=== PATIENT | male | born 1960 | race Asian ===

== ENCOUNTER 2022-02-14 05:12 | Emergency (ER) | payer MEDICARE, SELFPAY ==
[2022-02-14] VITALS (17 sets, daily range): BP systolic 104–133; BP diastolic 69–89; PULSE 82–107; RESP 17–22; TEMP 36.1–36.6; O2SAT 90–100; BMI 25.9
--- NOTE | 2022-02-14 05:36 | CRLHL7_ITS ---
For Patients: As a result of the Century Cures Act, medical imaging exams and procedure reports are released immediately into your electronic medical record. You may view this report before your referring provider. If you have questions, please contact your health care provider. INDICATION: Chest pain. TECHNIQUE: Chest 1 views. COMPARISON: 01/10/2020. FINDINGS: Cardiovascular and mediastinum: Heart size and vasculature are normal in caliber and appearance. Lungs and pleural spaces: Lungs are clear. No sign of infiltrate or mass. No sign of pleural effusion. No pneumothorax. Bones and soft tissues: No significant findings. IMPRESSION: No acute findings and no significant changes from the prior exam. Dictated by Douglas Gamino MD @ 02/14/2022 6:41:05 AM (Electronically Signed)
[2022-02-14 05:44] LABS: Basophils Absolute Auto 0.01 K/uL (0.00-0.30); Basophils Percent Auto 0.2 % (0.0-3.0); Eosinophils Absolute Auto 0.04 K/uL (0.00-0.50); Eosinophils Percent Auto 0.8 % (0.0-7.0); Hematocrit 25.6 % (37.0-53.0); Immature Granulocytes Abs Auto 0.09 K/uL (0.00-0.30); Lymphocytes Percent Auto 65.9 % (20-44); Mean Corpuscular HGB Conc 35 gm/dL (32-36); Mean Corpuscular Hemoglobin 32 pg (26-34); Mean Corpuscular Volume 90 fL (80-100); Monocytes Percent Auto 8.8 % (0.0-11.0); Neutrophils Percent Auto 22.5 % (42.0-72.0); RDW Coefficient of Variation % 12.4 % (11.5-15.5); Red Blood Count 2.85 m/uL (4.30-5.90); White Blood Count* 5.02 K/uL (4.50-11.00)
[2022-02-14] MEDS: MORPHINE 2 MG/ML inj IVP ×3 (05:47→08:02)
[2022-02-14 05:49] LABS: Platelet Count* 16 K/uL (140-440)
[2022-02-14 05:50] LABS: Slide Review Reflex No
--- NOTE | 2022-02-14 05:50 | ED.NURSE ---
Critical lab value of platelets [address] Chou of this result
[2022-02-14] MEDS: ONDANSETRON 2 MG/ML inj 4 MG IVP (05:51)
--- NOTE | 2022-02-14 05:53 | ED_ITS ---
HPI - General Adult General Date Seen: 02/14/22 <Omid Chou MD - Last Filed: 02/14/22 10:18> Chief complaint: Chest Pain <Omid Chou MD - Last Filed: 02/14/22 10:18> Stated complaint: pain on chest and shoulders <Omid Chou MD - Last Filed: 02/14/22 10:18> Time Seen by Provider: 02/14/22 05:19 <Omdi Chou MD - Last Filed: 02/14/22 10:18> Source: patient <Omid Chou MD - Last Filed: 02/14/22 10:18> Mode of arrival: ambulatory <Omid Chou MD - Last Filed: 02/14/22 10:18> Limitations: language barrier <Omid Chou MD - Last Filed: 02/14/22 10:18> History of Present Illness HPI narrative: Patient is a 61-year-old male with a long history of mantle cell lymphoma. 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 He has now relapsed and recently had a bone marrow biopsy. He is supposed to meet with his oncologist later on today to determine the plan of action. Last evening he went to bed feeling well and woke up with an occipital headache at 10:00 p.m.. He was able to get back to sleep but awoke again at midnight with pain in both shoulders. He awoke a 3rd time at 2:00 a.m. with pain in his chest and epigastric area. He has not taken anything to help with the pain. He denies GI upset or acid reflux. He has no fevers or chills. He denies shortness of breath or cough but does have some pain with deep inspiration. No nausea or vomiting. He states that he has been eating and drinking well. He has no cardiac history. Recent PET scan showed diffusely increased uptake throughout his skull base, spine, ribs, pelvis, extremities consistent with bone marrow infiltration recurrent lymphoma. He has a meeting with Dr. Olson from [facility] at 11:00 a.m. today in the [facility]. He does not have anyone to drive him to that appointment. <Omid Chou MD - Last Filed: 02/14/22 10:18> Related Data Home medications: Home Medications Medication Instructions Recorded Confirmed No Known Home Medications 02/14/22 02/14/22 <Omid Chou MD - Last Filed: 02/14/22 10:18> Allergies/adverse reactions: Allergies Allergy/AdvReac Type Severity Reaction Status Date / Time No Known Drug Allergies Allergy Verified 02/14/22 05:23 <Omid Chou MD - Last Filed: 02/14/22 10:18> [facility] Medical History: Medical History (Updated 02/14/22 @ 15:07 by Tomeka Reyes MD) B12 deficiency COVID-19 virus infection History of Helicobacter pylori infection Mantle cell lymphoma Thrombocytopenia Vertigo <Omid Chou MD - Last Filed: 02/14/22 10:18> Surgical History: Surgical History (Updated 02/14/22 @ 05:35 by Christiana Leary RN) Bone marrow transplant status <Omid Chou MD - Last Filed: 02/14/22 10:18> Social History: Social History (Updated 02/14/22 @ 05:52 by Omid Chou MD) Narrative: , PCP is Nataliya, former smoker Smoking Status: Former smoker How often do you have a drink containing alcohol: never AUDIT-C Alcohol total score: 0 Non-prescribed substance use: denies use <Omid Chou MD - Last Filed: 02/14/22 10:18> Exam Narrative: Exam Narrative: Vitals noted. He is writhing in pain. HEENT: Conjunctiva clear. Scleral icterus. Tympanic membranes are pearly white bilaterally. Posterior pharynx is clear without erythema or exudate. Neck is supple without adenopathy, thyromegaly, carotid bruit. Lungs: Clear to auscultation in all jaramillo. No wheezes, rales, rhonchi. No chest wall tenderness. Heart: Tachycardic but Regular rate and rhythm without murmur. Abdomen: Soft and nontender. No guarding, rigidity, rebound. Bowel sounds are normal. No palpable masses. Extremities: No cyanosis or edema. Good distal pulses. Skin: No abnormalities noted of the exposed skin. He is pale. Neurologic: Awake, alert, fully oriented. Neurologic exam is nonfocal. <Dinh Chou MD - Last Filed: 02/14/22 10:18> Const: Vital Signs, click to edit/add: Vital Signs - 24 hr 02/14/22 05:20 02/14/22 05:50 02/14/22 06:20 Temperature 97.8 F Pulse Rate [Left P ulse Oximeter] 107 H 82 88 Respiratory Rate 22 20 22 Blood Pressure [Le ft Upper Arm] 133/89 110/71 115/81 Pulse Oximetry 100 96 92 Oxygen Delivery Me thod Room Air Room Air Room Air 02/14/22 07:00 02/14/22 07:30 02/14/22 08:00 Temperature Pulse Rate [Left P ulse Oximeter] 96 99 97 Respiratory Rate 22 18 Blood Pressure [Le ft Upper Arm] 121/83 115/77 120/81 Pulse Oximetry 98 94 99 Oxygen Delivery Me thod Room Air Room Air Room Air 02/14/22 08:30 02/14/22 09:00 02/14/22 09:08 Temperature Pulse Rate [Left P ulse Oximeter] 95 92 92 Respiratory Rate Blood Pressure [Le ft Upper Arm] 110/72 107/73 Pulse Oximetry 96 90 92 Oxygen Delivery Me thod Room Air Room Air Room Air 02/14/22 09:30 02/14/22 10:00 02/14/22 10:30 Temperature Pulse Rate [Left P ulse Oximeter] 96 99 83 Respiratory Rate 22 21 Blood Pressure [Le ft Upper Arm] 109/70 111/76 104/69 Pulse Oximetry 92 96 95 Oxygen Delivery Me thod Room Air Room Air Room Air 02/14/22 11:00 02/14/22 11:30 02/14/22 13:20 Temperature 97 F L Pulse Rate [Left P ulse Oximeter] 92 93 87 Respiratory Rate 20 17 18 Blood Pressure [Le ft Upper Arm] 115/78 110/75 115/80 Pulse Oximetry 96 95 95 Oxygen Delivery Me thod Room Air Room Air Room Air 02/14/22 15:00 02/14/22 14:00 02/14/22 13:20 Temperature Pulse Rate [Left P ulse Oximeter] 95 87 87 Respiratory Rate 21 20 18 Blood Pressure [Le ft Upper Arm] 107/79 114/75 115/80 Pulse Oximetry 97 94 95 Oxygen Delivery Me thod Room Air Room Air Room Air <Omid Chou MD - Last Filed: 02/14/22 10:18> Vital Signs, click to edit/add: Vital Signs - 24 hr 02/14/22 05:20 02/14/22 05:50 02/14/22 06:20 Temperature 97.8 F Pulse Rate [Left P ulse Oximeter] 107 H 82 88 Respiratory Rate 22 20 22 Blood Pressure [Le ft Upper Arm] 133/89 110/71 115/81 Pulse Oximetry 100 96 92 Oxygen Delivery Me thod Room Air Room Air Room Air 02/14/22 07:00 02/14/22 07:30 02/14/22 08:00 Temperature Pulse Rate [Left P ulse Oximeter] 96 99 97 Respiratory Rate 22 18 Blood Pressure [Le ft Upper Arm] 121/83 115/77 120/81 Pulse Oximetry 98 94 99 Oxygen Delivery Me thod Room Air Room Air Room Air 02/14/22 08:30 02/14/22 09:00 02/14/22 09:08 Temperature Pulse Rate [Left P ulse Oximeter] 95 92 92 Respiratory Rate Blood Pressure [Le ft Upper Arm] 110/72 107/73 Pulse Oximetry 96 90 92 Oxygen Delivery Me thod Room Air Room Air Room Air 02/14/22 09:30 02/14/22 10:00 02/14/22 10:30 Temperature Pulse Rate [Left P ulse Oximeter] 96 99 83 Respiratory Rate 22 21 Blood Pressure [Le ft Upper Arm] 109/70 111/76 104/69 Pulse Oximetry 92 96 95 Oxygen Delivery Me thod Room Air Room Air Room Air 02/14/22 11:00 02/14/22 11:30 02/14/22 13:20 Temperature 97 F L Pulse Rate [Left P ulse Oximeter] 92 93 87 Respiratory Rate 20 17 18 Blood Pressure [Le ft Upper Arm] 115/78 110/75 115/80 Pulse Oximetry 96 95 95 Oxygen Delivery Me thod Room Air Room Air Room Air 02/14/22 15:00 02/14/22 14:00 02/14/22 13:20 Temperature Pulse Rate [Left P ulse Oximeter] 95 87 87 Respiratory Rate 21 20 18 Blood Pressure [Le ft Upper Arm] 107/79 114/75 115/80 Pulse Oximetry 97 94 95 Oxygen Delivery Ca thod Room Air Room Air Room Air <Tomeka Reyes MD - Last Filed: 02/14/22 16:02> Course Course Hospital Course: Patient is seen and examined. Initial EKG shows sinus tachycardia with a rate of 105. No acute ST or T-wave changes noted. Portable chest x-ray by my read is unremarkable. Point of care troponin is 0. Other labs are ordered. He is given morphine 2 mg IV. <Omid Chou MD - Last Filed: 02/14/22 10:18> Reevaluation(s) Reevaluation #1: His chest pain and abdominal pain are much improved. He is still com plaining of an occipital headache and some shoulder pain. His labs are all [place] [address] and hemoglobin of 9.0. These are not significantly different from when last checked a week ago. D-dimer is still pending. He is given another 2 mg of morphine. <Omid Chou MD - Last Filed: 02/14/22 10:18> Reevaluation #2: The 2nd dose of morphine has helped his pain quite a lot. His D-dimer has come back at 4.[address] of his chest has been ordered to rule out pulmonary embolism. His chest x-ray by my read is negative and the radiologist concurs. His appointment with [facility] is at 11:00 a.m. this morning. He drives himself to these appointments. <Omid Chou MD - Last Filed: 02/14/22 10:18> Reevaluation #3: Patient is resting comfortably. Still waiting for Radiology to read the CT of his chest. Decision will have to be made as to whether he can drive to his oncology appointment at 11:00 a.m. this morning or whether that needs to be rescheduled. If he has a PE a transfer to [place] would make sense so the oncologist can see him there. <Omid Chou MD - Last Filed: 02/14/22 10:18> Time: 08:55 <Tomeka Reyes MD - Last Filed: 02/14/22 16:02> Additional Reevaluation(s): Was reviewed with patient that his chest CT PE protocol is not showing any pulmonary embolus or other acute pathology. He is feeling his head pain and neck pain again, the epigastric abdominal pain is worse. It is overall better than it was last night. It sounds as if this is been a constellation of pain symptoms including his head neck both shoulders, chest and epigastric abdomen radiating out. I have ordered 0.5 mg IV Dilaudid in will see if that helps. Patient has a history of lymphoma and after 2 years found that he is no longer in remission last week. He was supposed to see his oncologist today but the appointment has been canceled due to his symptoms. It is unclear at this time exactly what the pain is coming from, will need to look into his records further review his labs further tried to make a course of treatment and see if there is anything diagnosable here. We are going to do COVID screening. <Tomeka Reyes MD - Last Filed: 02/14/22 16:02> Consultations Consultation #1: Spoke with the radiologist regarding this patient. The preliminary CT re port did not show pulmonary emboli but our radiologist has done the formal over- read. He does see lesion in C7 and believes we need an MRI. This would potentially explain the patient's head and neck pain. I will be ordering an MRI of his cervical thoracic spine as recommended by our radiologist. <Tomeka Reyes MD - Last Filed: 02/14/22 16:02> Time: 09:20 <Tomeka Reyes MD - Last Filed: 02/14/22 16:02> Consultation #2: Have spoke with patient's oncologist Dr. Solo from [facility]. Reviewed the MRI report and he stated that it is not unusual for this patient who is having a recurrent mantle cell lymphoma. 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 He had talked to the [facility] transplant team and they had recommended starting acalabrutinib which Dr. Solo does have now. He understands that he will not be able to get up there today but they want to see him on Saturday to initiate this. In the meantime we will manage his pain. <Tomeka Reyes MD - Last Filed: 02/14/22 16:02> Time: 14:44 <Tomeka Reyes MD - Last Filed: 02/14/22 16:02> Vital Signs Vital signs: Initial Vital Signs Temperature 97.8 F 02/14/22 05:20 Temperature Source Temporal Artery Scan 02/14/22 05:20 Pulse Rate 107 H 02/14/22 05:20 Pulse Rhythm 02/14/22 05:20 Respiratory Rate 22 02/14/22 05:20 Blood Pressure 133/89 02/14/22 05:20 Blood Pressure Mean 103 02/14/22 05:20 Blood Pressure Position Supine 02/14/22 05:20 Pulse Oximetry 100 02/14/22 05:20 Oxygen Delivery Method 02/14/22 05:20 Vital Signs Temperature 97.8 F 02/14/22 05:20 Pulse Rate 107 H 02/14/22 05:20 Respiratory Rate 22 02/14/22 05:20 Blood Pressure 133/89 02/14/22 05:20 Pulse Oximetry 100 02/14/22 05:20 Oxygen Delivery Method 02/14/22 05:20 Temperature 97 F L 02/14/22 13:20 Pulse Rate 95 02/14/22 15:00 Respiratory Rate 21 02/14/22 15:00 Blood Pressure 107/79 02/14/22 15:00 Pulse Oximetry 97 02/14/22 15:00 Oxygen Delivery Method 02/14/22 15:00 <Omid Chou MD - Last Filed: 02/14/22 10:18> Initial Vital Signs Temperature 97.8 F 02/14/22 05:20 Temperature Source Temporal Artery Scan 02/14/22 05:20 Pulse Rate 107 H 02/14/22 05:20 Pulse Rhythm 02/14/22 05:20 Respiratory Rate 22 02/14/22 05:20 Blood Pressure 133/89 02/14/22 05:20 Blood Pressure Mean 103 02/14/22 05:20 Blood Pressure Position Supine 02/14/22 05:20 Pulse Oximetry 100 02/14/22 05:20 Oxygen Delivery Method 02/14/22 05:20 Vital Signs Temperature 97.8 F 02/14/22 05:20 Pulse Rate 107 H 02/14/22 05:20 Respiratory Rate 22 02/14/22 05:20 Blood Pressure 133/89 02/14/22 05:20 Pulse Oximetry 100 02/14/22 05:20 Oxygen Delivery Method 02/14/22 05:20 Temperature 97 F L 02/14/22 13:20 Pulse Rate 95 02/14/22 15:00 Respiratory Rate 21 02/14/22 15:00 Blood Pressure 107/79 02/14/22 15:00 Pulse Oximetry 97 02/14/22 15:00 Oxygen Delivery Method 02/14/22 15:00 <Tomeka Reyes MD - Last Filed: 02/14/22 16:02> Medical Decision Making Lab Data Labs: Lab Results 02/14/22 02/14/22 02/14/22 Range/Units 05:25 05:25 05:25 WBC 5.02 (4.50-11.00) K/uL RBC 2.85 L (4.30-5.90) m/uL Hgb 9.0 L (13.5-17.5) gm/dL Hct 25.6 L (37.0-53.0) % MCV 90 (80-100) fL MCH 32 (26-34) pg MCHC 35 (32-36) gm/dL RDW Coeff of Rebeca 12.4 (11.5-15.5) % Plt Count 16 L* (140-440) K/uL Neut % (Auto) 22.5 L (42.0-72.0) % Lymph % (Auto) 65.9 H (20-44) % [place] % (Auto) 8.8 (0.0-11.0) % Eos % (Auto) 0.8 (0.0-7.0) % Baso % (Auto) 0.2 (0.0-3.0) % Neut # (Auto) 1.10 L (1.7-7.0) K/uL Lymph # (Auto) 3.30 H (0.90-2.90) K/uL [place] # (Auto) 0.40 (0.00-0.90) K/UL Eos # (Auto) 0.04 (0.00-0.50) K/uL Baso # (Auto) 0.01 (0.00-0.30) K/uL Abs Immat Gran (auto) 0.09 (0.00-0.30) K/uL D-Dimer Quant (PE/DVT) 4.43 H (0.00-0.50) ug/ml Sodium 138 (135-149) mmol/L Potassium 4.2 (3.6-5.1) mmol/L Chloride 103 (96-114) mmol/L Carbon Dioxide 24 (20-32) mmol/L BUN 18 (7-30) mg/dL Creatinine 0.8 (0.5-1.5) mg/dL Estimated Creat Clear 102.66 Estimated GFR 102 ml/min Glucose 98 (60-115) mg/dL Uric Acid 7.0 (2.2-8.4) mg/dL Calcium 9.4 (8.4-10.6) mg/dL Total Bilirubin (0.1-1.5) mg/dL Direct Bilirubin (0.0-0.5) mg/dL AST (12-35) U/L ALT (4-50) U/L Alkaline Phosphatase (40-150) U/L Total Protein (6.0-8.3) g/dL Albumin (3.3-5.0) g/dL Lipase (23-300) U/L Procalcitonin (<0.50) ng/mL Urine Color (Yellow) Urine Appearance (Clear) Urine pH (5.0-8.5) Ur Specific [place] (1.000-1.030) Urine Protein (Negative) Urine Glucose (UA) (Negative) Urine Ketones (Negative) Urine Blood (Negative) Urine Nitrite (Negative) Urine Bilirubin (Negative) Urine Urobilinogen (0.2-1.0) Ur Leukocyte Esterase (Negative) Urine RBC (0-2) Urine WBC (0-5) Ur Squamous Epith Cells (None-Few) Urine Bacteria SARS-CoV-2 (PCR) (Negative) POC Troponin I (0.01-0.04) ng/ml 02/14/22 02/14/22 02/14/22 Range/Units 05:25 05:25 08:57 WBC (4.50-11.00) K/uL RBC (4.30-5.90) m/uL Hgb (13.5-17.5) gm/dL Hct (37.0-53.0) % MCV (80-100) fL MCH (26-34) pg MCHC (32-36) gm/dL RDW Coeff of Rebeca (11.5-15.5) % Plt Count (140-440) K/uL Neut % (Auto) (42.0-72.0) % Lymph % (Auto) (20-44) % [place] % (Auto) (0.0-11.0) % Eos % (Auto) (0.0-7.0) % Baso % (Auto) (0.0-3.0) % Neut # (Auto) (1.7-7.0) K/uL Lymph # (Auto) (0.90-2.90) K/uL [place] # (Auto) (0.00-0.90) K/UL Eos # (Auto) (0.00-0.50) K/uL Baso # (Auto) (0.00-0.30) K/uL Abs Immat Gran (auto) (0.00-0.30) K/uL D-Dimer Quant (PE/DVT) (0.00-0.50) ug/ml Sodium (135-149) mmol/L Potassium (3.6-5.1) mmol/L Chloride (96-114) mmol/L Carbon Dioxide (20-32) mmol/L BUN (7-30) mg/dL Creatinine (0.5-1.5) mg/dL Estimated Creat Clear Estimated GFR ml/min Glucose (60-115) mg/dL Uric Acid (2.2-8.4) mg/dL Calcium (8.4-10.6) mg/dL Total Bilirubin 1.4 (0.1-1.5) mg/dL Direct Bilirubin 0.4 (0.0-0.5) mg/dL AST 53 H (12-35) U/L ALT 26 (4-50) U/L Alkaline Phosphatase 129 (40-150) U/L Total Protein 8.6 H (6.0-8.3) g/dL Albumin 4.9 (3.3-5.0) g/dL Lipase 98 (23-300) U/L Procalcitonin 0.12 (<0.50) ng/mL Urine Color (Yellow) Urine Appearance (Clear) Urine pH (5.0-8.5) Ur Specific [place] (1.000-1.030) Urine Protein (Negative) Urine Glucose (UA) (Negative) Urine Ketones (Negative) Urine Blood (Negative) Urine Nitrite (Negative) Urine Bilirubin (Negative) Urine Urobilinogen (0.2-1.0) Ur Leukocyte Esterase (Negative) Urine RBC (0-2) Urine WBC (0-5) Ur Squamous Epith Cells (None-Few) Urine Bacteria SARS-CoV-2 (PCR) Negative SARS-CoV-2 (Negative) POC Troponin I 0.00 L (0.01-0.04) ng/ml 02/14/22 Range/Units 10:00 WBC (4.50-11.00) K/uL RBC (4.30-5.90) m/uL Hgb (13.5-17.5) gm/dL Hct (37.0-53.0) % MCV (80-100) fL MCH (26-34) pg MCHC (32-36) gm/dL RDW Coeff of Rebeca (11.5-15.5) % Plt Count (140-440) K/uL Neut % (Auto) (42.0-72.0) % Lymph % (Auto) (20-44) % [place] % (Auto) (0.0-11.0) % Eos % (Auto) (0.0-7.0) % Baso % (Auto) (0.0-3.0) % Neut # (Auto) (1.7-7.0) K/uL Lymph # (Auto) (0.90-2.90) K/uL [place] # (Auto) (0.00-0.90) K/UL Eos # (Auto) (0.00-0.50) K/uL Baso # (Auto) (0.00-0.30) K/uL Abs Immat Gran (auto) (0.00-0.30) K/uL D-Dimer Quant (PE/DVT) (0.00-0.50) ug/ml Sodium (135-149) mmol/L Potassium (3.6-5.1) mmol/L Chloride (96-114) mmol/L Carbon Dioxide (20-32) mmol/L BUN (7-30) mg/dL Creatinine (0.5-1.5) mg/dL Estimated Creat Clear Estimated GFR ml/min Glucose (60-115) mg/dL Uric Acid (2.2-8.4) mg/dL Calcium (8.4-10.6) mg/dL Total Bilirubin (0.1-1.5) mg/dL Direct Bilirubin (0.0-0.5) mg/dL AST (12-35) U/L ALT (4-50) U/L Alkaline Phosphatase (40-150) U/L Total Protein (6.0-8.3) g/dL Albumin (3.3-5.0) g/dL Lipase (23-300) U/L Procalcitonin (<0.50) ng/mL Urine Color Yellow (Yellow) Urine Appearance Clear (Clear) Urine pH 5.5 (5.0-8.5) Ur Specific [place] 1.015 (1.000-1.030) Urine Protein Negative (Negative) Urine Glucose (UA) Negative (Negative) Urine Ketones Negative (Negative) Urine Blood Trace-lysed A (Negative) Urine Nitrite Negative (Negative) Urine Bilirubin Negative (Negative) Urine Urobilinogen 0.2 (0.2-1.0) Ur Leukocyte Esterase Negative (Negative) Urine RBC 0-2 (0-2) Urine WBC 0-2 (0-5) Ur Squamous Epith Cells Few (None-Few) Urine Bacteria Not Reportable SARS-CoV-2 (PCR) (Negative) POC Troponin I (0.01-0.04) ng/ml <Omid Chou MD - Last Filed: 02/14/22 10:18> Lab Results 02/14/22 02/14/22 02/14/22 Range/Units 05:25 05:25 05:25 WBC 5.02 (4.50-11.00) K/uL RBC 2.85 L (4.30-5.90) m/uL Hgb 9.0 L (13.5-17.5) gm/dL Hct 25.6 L (37.0-53.0) % MCV 90 (80-100) fL MCH 32 (26-34) pg MCHC 35 (32-36) gm/dL RDW Coeff of Rebeca 12.4 (11.5-15.5) % Plt Count 16 L* (140-440) K/uL Neut % (Auto) 22.5 L (42.0-72.0) % Lymph % (Auto) 65.9 H (20-44) % [place] % (Auto) 8.8 (0.0-11.0) % Eos % (Auto) 0.8 (0.0-7.0) % Baso % (Auto) 0.2 (0.0-3.0) % Neut # (Auto) 1.10 L (1.7-7.0) K/uL Lymph # (Auto) 3.30 H (0.90-2.90) K/uL [place] # (Auto) 0.40 (0.00-0.90) K/UL Eos # (Auto) 0.04 (0.00-0.50) K/uL Baso # (Auto) 0.01 (0.00-0.30) K/uL Abs Immat Gran (auto) 0.09 (0.00-0.30) K/uL D-Dimer Quant (PE/DVT) 4.43 H (0.00-0.50) ug/ml Sodium 138 (135-149) mmol/L Potassium 4.2 (3.6-5.1) mmol/L Chloride 103 (96-114) mmol/L Carbon Dioxide 24 (20-32) mmol/L BUN 18 (7-30) mg/dL Creatinine 0.8 (0.5-1.5) mg/dL Estimated Creat Clear 102.66 Estimated GFR 102 ml/min Glucose 98 (60-115) mg/dL Uric Acid 7.0 (2.2-8.4) mg/dL Calcium 9.4 (8.4-10.6) mg/dL Total Bilirubin (0.1-1.5) mg/dL Direct Bilirubin (0.0-0.5) mg/dL AST (12-35) U/L ALT (4-50) U/L Alkaline Phosphatase (40-150) U/L Total Protein (6.0-8.3) g/dL Albumin (3.3-5.0) g/dL Lipase (23-300) U/L Procalcitonin (<0.50) ng/mL Urine Color (Yellow) Urine Appearance (Clear) Urine pH (5.0-8.5) Ur Specific [place] (1.000-1.030) Urine Protein (Negative) Urine Glucose (UA) (Negative) Urine Ketones (Negative) Urine Blood (Negative) Urine Nitrite (Negative) Urine Bilirubin (Negative) Urine Urobilinogen (0.2-1.0) Ur Leukocyte Esterase (Negative) Urine RBC (0-2) Urine WBC (0-5) Ur Squamous Epith Cells (None-Few) Urine Bacteria SARS-CoV-2 (PCR) (Negative) POC Troponin I (0.01-0.04) ng/ml 02/14/22 02/14/22 02/14/22 Range/Units 05:25 05:25 08:57 WBC (4.50-11.00) K/uL RBC (4.30-5.90) m/uL Hgb (13.5-17.5) gm/dL Hct (37.0-53.0) % MCV (80-100) fL MCH (26-34) pg MCHC (32-36) gm/dL RDW Coeff of Rebeca (11.5-15.5) % Plt Count (140-440) K/uL Neut % (Auto) (42.0-72.0) % Lymph % (Auto) (20-44) % [place] % (Auto) (0.0-11.0) % Eos % (Auto) (0.0-7.0) % Baso % (Auto) (0.0-3.0) % Neut # (Auto) (1.7-7.0) K/uL Lymph # (Auto) (0.90-2.90) K/uL [place] # (Auto) (0.00-0.90) K/UL Eos # (Auto) (0.00-0.50) K/uL Baso # (Auto) (0.00-0.30) K/uL Abs Immat Gran (auto) (0.00-0.30) K/uL D-Dimer Quant (PE/DVT) (0.00-0.50) ug/ml Sodium (135-149) mmol/L Potassium (3.6-5.1) mmol/L Chloride (96-114) mmol/L Carbon Dioxide (20-32) mmol/L BUN (7-30) mg/dL Creatinine (0.5-1.5) mg/dL Estimated Creat Clear Estimated GFR ml/min Glucose (60-115) mg/dL Uric Acid (2.2-8.4) mg/dL Calcium (8.4-10.6) mg/dL Total Bilirubin 1.4 (0.1-1.5) mg/dL Direct Bilirubin 0.4 (0.0-0.5) mg/dL AST 53 H (12-35) U/L ALT 26 (4-50) U/L Alkaline Phosphatase 129 (40-150) U/L Total Protein 8.6 H (6.0-8.3) g/dL Albumin 4.9 (3.3-5.0) g/dL Lipase 98 (23-300) U/L Procalcitonin 0.12 (<0.50) ng/mL Urine Color (Yellow) Urine Appearance (Clear) Urine pH (5.0-8.5) Ur Specific [place] (1.000-1.030) Urine Protein (Negative) Urine Glucose (UA) (Negative) Urine Ketones (Negative) Urine Blood (Negative) Urine Nitrite (Negative) Urine Bilirubin (Negative) Urine Urobilinogen (0.2-1.0) Ur Leukocyte Esterase (Negative) Urine RBC (0-2) Urine WBC (0-5) Ur Squamous Epith Cells (None-Few) Urine Bacteria SARS-CoV-2 (PCR) Negative SARS-CoV-2 (Negative) POC Troponin I 0.00 L (0.01-0.04) ng/ml 02/14/22 Range/Units 10:00 WBC (4.50-11.00) K/uL RBC (4.30-5.90) m/uL Hgb (13.5-17.5) gm/dL Hct (37.0-53.0) % MCV (80-100) fL MCH (26-34) pg MCHC (32-36) gm/dL RDW Coeff of Rebeca (11.5-15.5) % Plt Count (140-440) K/uL Neut % (Auto) (42.0-72.0) % Lymph % (Auto) (20-44) % [place] % (Auto) (0.0-11.0) % Eos % (Auto) (0.0-7.0) % Baso % (Auto) (0.0-3.0) % Neut # (Auto) (1.7-7.0) K/uL Lymph # (Auto) (0.90-2.90) K/uL [place] # (Auto) (0.00-0.90) K/UL Eos # (Auto) (0.00-0.50) K/uL Baso # (Auto) (0.00-0.30) K/uL Abs Immat Gran (auto) (0.00-0.30) K/uL D-Dimer Quant (PE/DVT) (0.00-0.50) ug/ml Sodium (135-149) mmol/L Potassium (3.6-5.1) mmol/L Chloride (96-114) mmol/L Carbon Dioxide (20-32) mmol/L BUN (7-30) mg/dL Creatinine (0.5-1.5) mg/dL Estimated Creat Clear Estimated GFR ml/min Glucose (60-115) mg/dL Uric Acid (2.2-8.4) mg/dL Calcium (8.4-10.6) mg/dL Total Bilirubin (0.1-1.5) mg/dL Direct Bilirubin (0.0-0.5) mg/dL AST (12-35) U/L ALT (4-50) U/L Alkaline Phosphatase (40-150) U/L Total Protein (6.0-8.3) g/dL Albumin (3.3-5.0) g/dL Lipase (23-300) U/L Procalcitonin (<0.50) ng/mL Urine Color Yellow (Yellow) Urine Appearance Clear (Clear) Urine pH 5.5 (5.0-8.5) Ur Specific [place] 1.015 (1.000-1.030) Urine Protein Negative (Negative) Urine Glucose (UA) Negative (Negative) Urine Ketones Negative (Negative) Urine Blood Trace-lysed A (Negative) Urine Nitrite Negative (Negative) Urine Bilirubin Negative (Negative) Urine Urobilinogen 0.2 (0.2-1.0) Ur Leukocyte Esterase Negative (Negative) Urine RBC 0-2 (0-2) Urine WBC 0-2 (0-5) Ur Squamous Epith Cells Few (None-Few) Urine Bacteria Not Reportable SARS-CoV-2 (PCR) (Negative) POC Troponin I (0.01-0.04) ng/ml <Tomeka Reyes MD - Last Filed: 02/14/22 16:02> Imaging Data Chest x-ray: Attestation: I have reviewed the pertinent imaging results. <Tomeka Borden MD - Last Filed: 02/14/22 16:02> Radiologist's impression: Patient: [facility] Facility:[facility] Patient ID:?[id number] Site Patient ID:?[id number]. Site :?[id number] Study:?XRay Chest 1V PORTABLE-02/14/2022 5:48:38 AM Ordering Physician:Leandro Anne Final Report: INDICATION: Chest pain. TECHNIQUE: Chest 1 views. COMPARISON: 01/10/2020. FINDINGS: Cardiovascular and mediastinum: Heart size and vasculature are normal in caliber and appearance. Lungs and pleural spaces: Lungs are clear. No sign of infiltrate or mass. No sign of pleural effusion. No pneumothorax. Bones and soft tissues: No significant findings. IMPRESSION: No acute findings and no significant changes from the prior exam. Dictated by Douglas Gamino MD @ 02/14/2022 6:41:05 AM (Electronic Signature) <Tomeka Reyes MD - Last Filed: 02/14/22 16:02> CT scan - chest: Attestation: I have reviewed the pertinent imaging results. <Tomeka Borden MD - Last Filed: 02/14/22 16:02> Radiologist's impression: Patient: [facility] Facility:[facility] Patient ID:?[id number] Site Patient ID:?[id number] Site :?[id number] Study:?CT Chest Angio PE STUDY-02/14/2022 6:55:36 AM Ordering Physician:Leandro Anne Preliminary Report: 1. Negative for acute pulmonary embolism. 2. No focal consolidation, pleural effusion, or pneumothorax. Dictated by Edelmira Jefferson MD @ 02/14/2022 8:10:32 AM Read by:Marcus Jefferson MD @ 02/14/2022 08:10:43 Patient: [facility] Facility:[facility] Patient ID:?[id number] Site Patient ID:?[id number]. Site :?1960 Study:?CT Chest Angio PE STUDY-02/14/2022 6:55:36 AM Ordering Physician:Leandro Anne Final Report: INDICATION: History of lymphoma, elevated D-dimer COMPARISON: 06/06/2020 TECHNIQUE: CT volumetric acquisition was performed of the thorax during intravenous infusion of 95 cc Isovue 370 nonionic intravenous contrast. Please note that all CT scans at this facility use dose modulation, iterative reconstruction, and/or weight-based dosing when appropriate to reduce radiation dose to as low as reasonably achievable. FINDINGS: There is no pulmonary embolism in the main, lobar or segmental pulmonary arteries. Less than 1 centimeter colloid cyst in the right thyroid lobe. No enlarged intrathoracic lymph nodes. Simple cyst arises from the upper pole of the right kidney. Adrenal glands normal. Multiple simple hepatic cysts. No pleural effusion or infiltrate. Mild residual areas of scarring noted in the lungs. No pneumothorax. At C7, there is an area of increased density centrally with developing area of lucency at the superior endplate, new from prior. IMPRESSION: No evidence of pulmonary thromboembolism. Suspicious osseous lesion at C7. Other faint lesions within the ribs and at T12 appear to be present. MRI of the cervical thoracic spine recommended. Mild diffuse pulmonary parenchymal scarring likely related to prior COVID infe ction. No intrathoracic adenopathy. Please note that all CT scans at this facility use dose modulation, iterative reconstruction, and/or weight-based dosing when appropriate to reduce radiation dose to as low as reasonably achievable. Dictated by Omid Guerrero MD @ 02/14/2022 8:59:52 AM (Electronic Signature) <Tomeka Reyes MD - Last Filed: 02/14/22 16:02> MRI cervical and thoracic spine: Attestation: I have reviewed the pertinent imaging results. <Tomeka Borden MD - Last Filed: 02/14/22 16:02> Radiologist's impression: Patient: BASILIA LYNN Facility:?[facility] Patient ID:?[id number] Site Patient ID:?[id number]. Site :?[id number] Study:?MRI Spine Cervical W/WO 15 CC DOTAREM-02/14/2022 1:45:05 PM Ordering Physician:Tash Eckert Final Report: INDICATION: Lymphoma. Neck pain. Recent CT scan showing lesion C7. TECHNIQUE: The cervical spine scanned sagittal and axial T1 weighted images with and without gadolinium contrast, sagittal axial T2 and sagittal STIR images. The thoracic spine is also scanned sagittal and axial T1 weighted images before and after infusion of contrast, sagittal axial T2 and sagittal STIR images. COMPARISON: CT scan of the chest performed earlier today. FINDINGS: Cervical spine: Relative straightening of the usual cervical curve. Multilevel mid to lower cervical spondylosis. Disc protrusions at C4-5, C5-6 and C6-7 levels with resultant degenerative spinal canal stenosis. At the C7 level there is a partially enhancing focus of heterogeneous T2 prolongation and enhancement extending through the central core of the vertebral body. This corresponds to the focal lesion described on recent CT scan. This finding is superimposed on a background of diffuse, homogeneous, nonspecific low T1 signal throughout the cervical vertebrae and posterior elements and clivus with consistent with the history of lymphoma. No adjacent paraspinal or epidural soft tissue mass. Normal cervical cord signal. No disc herniation or stenosis at the C2-3 or C3-4 levels. At C4-5 shallow broad-based central disc protrusion contacts the ventral surface of the spinal cord causing mild flattening of the cord there is moderate central stenosis. The neural foramen are adequately patent. At C5-6 broad-based posterior disc protrusion osteophyte complex results in moderate central stenosis with flattening of the cord surface. Moderate bilateral neural foraminal narrowing. At C6-7 a shallow broad posterior disc protrusion osteophyte extends to the right of midline there is mild central stenosis and moderate right neural foraminal narrowing. At C7-T1 no disc herniation central or lateral stenosis. Thoracic spine: Alignment of thoracic vertebrae within normal limits. There is similar homogeneous low T1 signal throughout the bone marrow of the thoracic vertebrae consistent with the history of lymphoma. More heterogeneous signal noted in the posterior limbs. There is no compression fracture. There is no evidence of cortical bone destruction. No thoracic disc herniation or stenosis of the thoracic spinal canal or neural foramina. No paraspinal or epidural soft tissue mass. No enhancing intradural lesion. Normal thoracic spinal cord signal intensity. Impression : 1. Diffuse, nonspecific, homogeneous signal abnormality throughout most of the cervical and thoracic vertebrae is consistent with the history of lymphoma. No evidence of acute compression fracture. No paraspinal or epidural mass or hematoma. 2. Focal enhancing lesion within the C7 vertebral body without compression fracture deformity, nor paraspinal or epidural soft tissue mass. This may represent a localized focus of active osseous neoplasm. 3. Multilevel cervical spondylosis. Moderate central spinal canal stenosis at C4-5, C5-6 and C6-7 levels with associated neural foraminal stenosis. 4. Mild chronic compressive deformity of the cervical spinal cord at C4-5 and C5-6 due to posterior disc herniations. Normal cord signal. <Tomeka Reyes MD - Last Filed: 02/14/22 16:02> Critical Care Time Critical Care Time Critical Care Time: No <Tomeka Reyes MD - Last Filed: 02/14/22 16:02> Discharge Plan Discharge Clinical Impression: Mantle cell lymphoma, Thrombocytopenia <Omid Chou MD - Last Filed: 02/14/22 10:18> Patient Disposition: Home, Self-Care <Omid Chou MD - Last Filed: 02/14/22 10:18> Condition: Stable <Omid Chou MD - Last Filed: 02/14/22 10:18> Instructions: Pain Management (ED), Opioid Safety (ED) <Omid Chou MD - Last Filed: 02/14/22 10:18> Additional Instructions: Take Tylenol 1000 mg 3 times a day baseline for pain. I would recommend that you not take aspirin, ibuprofen or other NSAIDs due to your low platelets from your lymphoma. Taking these types of medicines could increase the risk of bleeding. Can use the oxycodone for severe pain per prescription instructions. If you are using oxycodone, may need to take MiraLax daily and possibly add in senna per package instructions to help prevent constipation from narcotic use. You need to contact your oncologist Dr. Solo office to get scheduled for follow-up on Saturday for you to get treatment for your lymphoma. He has the medicine in his office for you to start. <Omid Chou MD - Last Filed: 02/14/22 10:18> Activity Level: Activity as Tolerated <Omid Chou MD - Last Filed: 02/14/22 10:18> Activity as Tolerated <Tomeka Reyes MD - Last Filed: 02/14/22 16:02> Prescriptions: No Action No Known Home Medications <Omid Chou MD - Last Filed: 02/14/22 10:18> Follow Up/Referrals: Hari An MD [Primary Care Provider] - <Omid Chou MD - Last Filed: 02/14/22 10:18> Stand Alone Forms: [employer] Info Instructions <Omid Chou MD - Last Filed: 02/14/22 10:18>
[2022-02-14 05:57] LABS: Chloride* 103 mmol/L (96-114); Potassium* 4.2 mmol/L (3.6-5.1); Sodium* 138 mmol/L (135-149)
[2022-02-14 06:00] LABS: Carbon Dioxide* 24 mmol/L (20-32); Creatinine* 0.8 mg/dL (0.5-1.5); Est. Creatinine Clearance* 102.66; Estimated Glomerular Filt Rate 102 ml/min
[2022-02-14 06:01] LABS: Blood Urea Nitrogen* 18 mg/dL (7-30); Calcium* 9.4 mg/dL (8.4-10.6); Glucose* 98 mg/dL (60-115)
[2022-02-14 06:09] LABS: D Dimer Quantitative* 4.43 ug/ml (0.00-0.50)
--- NOTE | 2022-02-14 06:22 | CRLHL7_ITS ---
For Patients: As a result of the Century Cures Act, medical imaging exams and procedure reports are released immediately into your electronic medical record. You may view this report before your referring provider. If you have questions, please contact your health care provider. INDICATION: History of lymphoma, elevated D-dimer COMPARISON: 06/06/2020 TECHNIQUE: CT volumetric acquisition was performed of the thorax during intravenous infusion of 95 cc Isovue 370 nonionic intravenous contrast. Please note that all CT scans at this facility use dose modulation, iterative reconstruction, and/or weight-based dosing when appropriate to reduce radiation dose to as low as reasonably achievable. FINDINGS: There is no pulmonary embolism in the main, lobar or segmental pulmonary arteries. Less than 1 centimeter colloid cyst in the right thyroid lobe. No enlarged intrathoracic lymph nodes. Simple cyst arises from the upper pole of the right kidney. Adrenal glands normal. Multiple simple hepatic cysts. No pleural effusion or infiltrate. Mild residual areas of scarring noted in the lungs. No pneumothorax. At C7, there is an area of increased density centrally with developing area of lucency at the superior endplate, new from prior. IMPRESSION: No evidence of pulmonary thromboembolism. Suspicious osseous lesion at C7. Other faint lesions within the ribs and at T12 appear to be present. MRI of the cervical thoracic spine recommended. Mild diffuse pulmonary parenchymal scarring likely related to prior COVID infection. No intrathoracic adenopathy. Please note that all CT scans at this facility use dose modulation, iterative reconstruction, and/or weight-based dosing when appropriate to reduce radiation dose to as low as reasonably achievable. Dictated by Omid Guerrero MD @ 02/14/2022 8:59:52 AM (Electronically Signed)
--- NOTE | 2022-02-14 08:11 | ED.NURSE ---
was given 2 md ms. onc appointment was cancelled per his request. son called no answer, will try after 0900.
[2022-02-14] MEDS: HYDROmorphone 0.5 mg/0.5 ml inj IVP (08:51)
[2022-02-14 09:41] LABS: Albumin* 4.9 g/dL (3.3-5.0)
[2022-02-14 09:44] LABS: Alkaline Phosphatase* 129 U/L (40-150); Aspartate Amino Transferase* 53 U/L (12-35); Bilirubin Direct* 0.4 mg/dL (0.0-0.5); Bilirubin Total* 1.4 mg/dL (0.1-1.5); Lipase* 98 U/L (23-300); Total Protein* 8.6 g/dL (6.0-8.3)
[2022-02-14 09:45] LABS: Alanine Aminotransferase* 26 U/L (4-50)
--- NOTE | 2022-02-14 09:45 | CRLHL7_ITS ---
For Patients: As a result of the Century Cures Act, medical imaging exams and procedure reports are released immediately into your electronic medical record. You may view this report before your referring provider. If you have questions, please contact your health care provider. INDICATION: Lymphoma. Neck pain. Recent CT scan showing lesion C7. TECHNIQUE: The cervical spine scanned sagittal and axial T1 weighted images with and without gadolinium contrast, sagittal axial T2 and sagittal STIR images. The thoracic spine is also scanned sagittal and axial T1 weighted images before and after infusion of contrast, sagittal axial T2 and sagittal STIR images. COMPARISON: CT scan of the chest performed earlier today. FINDINGS: Cervical spine: Relative straightening of the usual cervical curve. Multilevel mid to lower cervical spondylosis. Disc protrusions at C4-5, C5-6 and C6-7 levels with resultant degenerative spinal canal stenosis. At the C7 level there is a partially enhancing focus of heterogeneous T2 prolongation and enhancement extending through the central core of the vertebral body. This corresponds to the focal lesion described on recent CT scan. This finding is superimposed on a background of diffuse, homogeneous, nonspecific low T1 signal throughout the cervical vertebrae and posterior elements and clivus with consistent with the history of lymphoma. No adjacent paraspinal or epidural soft tissue mass. Normal cervical cord signal. No disc herniation or stenosis at the C2-3 or C3-4 levels. At C4-5 shallow broad-based central disc protrusion contacts the ventral surface of the spinal cord causing mild flattening of the cord there is moderate central stenosis. The neural foramen are adequately patent. At C5-6 broad-based posterior disc protrusion osteophyte complex results in moderate central stenosis with flattening of the cord surface. Moderate bilateral neural foraminal narrowing. At C6-7 a shallow broad posterior disc protrusion osteophyte extends to the right of midline there is mild central stenosis and moderate right neural foraminal narrowing. At C7-T1 no disc herniation central or lateral stenosis. Thoracic spine: Alignment of thoracic vertebrae within normal limits. There is similar homogeneous low T1 signal throughout the bone marrow of the thoracic vertebrae consistent with the history of lymphoma. More heterogeneous signal noted in the posterior limbs. There is no compression fracture. There is no evidence of cortical bone destruction. No thoracic disc herniation or stenosis of the thoracic spinal canal or neural foramina. No paraspinal or epidural soft tissue mass. No enhancing intradural lesion. Normal thoracic spinal cord signal intensity. Impression : 1. Diffuse, nonspecific, homogeneous signal abnormality throughout most of the cervical and thoracic vertebrae is consistent with the history of lymphoma. No evidence of acute compression fracture. No paraspinal or epidural mass or hematoma. 2. Focal enhancing lesion within the C7 vertebral body without compression fracture deformity, nor paraspinal or epidural soft tissue mass. This may represent a localized focus of active osseous neoplasm. 3. Multilevel cervical spondylosis. Moderate central spinal canal stenosis at C4-5, C5-6 and C6-7 levels with associated neural foraminal stenosis. 4. Mild chronic compressive deformity of the cervical spinal cord at C4-5 and C5-6 due to posterior disc herniations. Normal cord signal. Dictated by Blanco Rider MD @ 02/14/2022 2:25:06 PM (Electronically Signed)
[2022-02-14 10:01] LABS: Procalcitonin* 0.12 ng/mL (<0.50)
[2022-02-14 10:10] LABS: SARS PCR* Negative SARS-CoV-2 (Negative)
[2022-02-14 10:13] LABS: Appearance Urine Clear (Clear); Bilirubin Urine Negative (Negative); Blood Urine Trace-lysed (Negative); Color Urine Yellow (Yellow); Glucose Urine Negative (Negative); Ketones Urine Negative (Negative); Leukocyte Esterase Urine Negative (Negative); Nitrite Urine Negative (Negative); Protein Urine Negative (Negative); Specific Gravity Urine 1.015 (1.000-1.030); Urobilinogen Urine 0.2 (0.2-1.0); pH Urine 5.5 (5.0-8.5)
[2022-02-14 10:20] LABS: RBC Urine 0-2 (0-2); WBC Urine 0-2 (0-5)
[2022-02-14 10:21] LABS: Squamous Epithelial Cell Urine Few (None-Few)
--- NOTE | 2022-02-14 14:40 | ED.NURSE ---
dr manjarrez was consulted per dr mackey.
[2022-02-14] MEDS: ACETAMINOPHEN 500 MG TABLET 1000 MG PO (15:01)
[2022-02-14] MEDS: OXYCODONE 5 MG TABLET PO (15:01)
== END 2022-02-14 15:30 | disposition home or self-care (01) ==
PROVIDERS: Family Medicine; Emergency Provider Family Medicine; PCP Surgery
DX: C83.10 Mantle cell lymphoma, unspecified site (principal); D69.6 Thrombocytopenia, unspecified
CPT/HCPCS: 36415; 71045; 71260; 72156; 72157; 80048; 80076; 81003; 81015; 83690; 84145; 84484; 84550; 85025; 85379; 87635; 93005; 96374; 96375; 96376; 99284; 99285; A9270; A9575; J1170; J2270; J2405; Q9967

== ENCOUNTER 2022-02-26 22:47 | Emergency (ER) | payer MEDICARE, SELFPAY ==
[2022-02-26 23:06] VITALS: BP 125/84; PULSE 122; RESP 20; TEMP 36.4; O2SAT 99; BMI 25.8
--- NOTE | 2022-02-27 00:39 | ED_ITS ---
HPI - General Adult General Time Seen by Provider: 00:39 Date Seen: 02/27/22 Chief complaint: Unspecified Complaint, Adult Stated complaint: Lymphoma Complications Time Seen by Provider: 02/27/22 00:22 Source: patient, RN notes reviewed and old records reviewed Mode of arrival: ambulatory Limitations: no limitations History of Present Illness HPI narrative: Patient is a very pleasant 61-year-old gentleman with a history of mantle cell lymphoma as well as known thrombocytopenia who comes to the emergency room for evaluation of anemia and thrombocytopenia. Patient was noted to have had blood work earlier today at the [facility]. Physician on-call who is not familiar with this gentleman stated that the patient had a hemoglobin of 6.2 whereas a month ago it had been 10.6. Also concerned that platelets were at 17,000. Patient was sent to the emergency room for evaluation. Patient notes that he has been more short of breath with activity over the past week. He has also had daily nose bleeds from his left nostril. He states that when this 1st started a week ago he actually had blood come out of the nose. Over the past few days however he notes that he will usually be able to clear the clot from his nose but it is quite solid. He has not had any blood running down the back of his throat in the past few days. He has not noticed any blood in his urine nor has he had any bleeding from his gums. He denies recent trauma. I do ask him about chest pain and he denies but states that he will get discomfort occasionally on the lower aspects of his ribcage and is abdomen. He states he only needs to change position and the pain goes away. He denies nausea or vomiting. Patient is currently under the care of [facility], Dr. Blanco Olson. Related Data Home Medications Medication Instructions Recorded Confirmed acalabrutinib 100 mg capsule 100 mg PO DAILY 02/26/22 02/26/22 (Calquence) allopurinol 300 mg tablet mg 02/26/22 dexamethasone 4 mg tablet mg 02/26/22 Allergies Allergy/AdvReac Type Severity Reaction Status Date / Time No Known Drug Allergies Allergy Verified 02/26/22 23:12 Review of Systems Status of ROS: Reports: 10 or more systems reviewed and unremarkable except as noted in History and below Const: Denies: fever or chills Eyes: Denies: change in vision ENMT: Reports: nose bleeds; Denies: throat pain or throat swelling Cardio: Reports: shortness of breath with exertion; Denies: chest pain, palpitations, edema or swelling of feet/ankles Resp: Reports: shortness of breath GI: Denies: nausea, vomiting or diarrhea : Denies: painful urination or blood in urine Musculo: Denies: back pain Integ/Breast: Denies: rash Javier/Lymph: Reports: easy bruising Allergy/Immuno: Denies: throat swelling PFSH PFSH Medical History B12 deficiency COVID-19 virus infection History of Helicobacter pylori infection Mantle cell lymphoma Thrombocytopenia Vertigo Surgical History Bone marrow transplant status Social History Narrative: , PCP is Nataliya, former smoker Smoking Status: Former smoker How often do you have a drink containing alcohol: never AUDIT-C Alcohol total score: 0 Non-prescribed substance use: denies use Exam Const: Vital Signs, click to edit/add: Vital Signs - 24 hr 02/26/22 23:06 02/27/22 02:00 02/27/22 02:30 Temperature 97.6 F Pulse Rate [Left P ulse Oximeter] 122 H 93 96 Respiratory Rate 20 16 16 Blood Pressure [Ri ght Upper Arm] 125/84 111/81 107/73 Pulse Oximetry 99 99 99 Oxygen Delivery Me thod Room Air Room Air Room Air Documenting provider has reviewed patient's vital signs: yes Common n ormals: no apparent distress, average body habitus, oriented x3, no limitations, healthy appearing and alert General appearance: cooperative and comfortable HENMT: Common normals: normocephalic, external ears normal and external nose normal Head and scalp: normocephalic Face and sinus: normal facial exam Nose: external nose normal and nares normal; no epistaxis External ear: external ears normal Mouth: oral and palatal mucosa normal Other: No evidence of bleeding in left nostril. No evidence of clotting. Eye: General eye: normal appearance of both eyes Neck & C-Spine: Common normals: full ROM Resp: Common normals: normal respiratory effort and clear to auscultation bilaterally Effort & inspection: able to speak in complete sentences and symmetric chest movement Auscultation: clear to auscultation bilaterally Cardio: Common normals: regular rhythm Rate: tachycardic Rhythm: regular rhythm GI: Common normals: soft to palpation and non-tender Palpation: soft Extremity: Common normals: normal to inspection Neuro: Common normals: oriented x3 Sensorium/orientation: alert Psych: Common normals: mental status grossly normal Skin: General skin exam: ecchymosis Course Course Hospital Course: At this time patient has been sent to the emergency room for evaluation of decreased hemoglobin and thrombocytopenia. I do have recent values from February 14 that show platelets at that time was 16,000. Hemoglobin was 9.0. Today according to [facility] it is 6.2. Will repeat CBC but also add basic, INR as well. Patient is describing that he is almost daily removing a clot from left side of his nose. However, I am not she can InStent tired that this would cause such a rapid decline in hemoglobin. Once labs have been returned I will speak with [facility] for direction. Patient is symptomatic with a resting heart rate of 122 but no chest pain. He is also noting shortness of breath with exertion. Type and screen has also been added to this gentleman's orders. Consultations Consultation #1: I had the pleasure of speaking with Dr. Blanco Olson, patient's oncologist with [facility]. At this time we discussed that patient is symptomatic for his anemia with resting heart rate that is elevated and shortness of breath with exertion. Recheck of his hemoglobin is 5.8. At this time suggestions for 2 units of irradiated packed red blood cells. Dr. Olson notes that platelets are actually improved from previous values and does not recommend platelet administration at this time. Does recommend follow-up as scheduled this week. Vital Signs Vital signs: Initial Vital Signs Temperature 97.6 F 02/26/22 23:06 Temperature Source Temporal Artery Scan 02/26/22 23:06 Pulse Rate 122 H 02/26/22 23:06 Respiratory Rate 20 02/26/22 23:06 Blood Pressure 125/84 02/26/22 23:06 Blood Pressure Mean 97 02/26/22 23:06 Blood Pressure Position Sitting 02/26/22 23:06 Pulse Oximetry 99 02/26/22 23:06 Oxygen Delivery Method 02/26/22 23:06 Vital Signs Temperature 97.6 F 02/26/22 23:06 Pulse Rate 122 H 02/26/22 23:06 Respiratory Rate 20 02/26/22 23:06 Blood Pressure 125/84 02/26/22 23:06 Pulse Oximetry 99 02/26/22 23:06 Oxygen Delivery Method 02/26/22 23:06 Temperature 97.6 F 02/26/22 23:06 Pulse Rate 96 02/27/22 02:30 Respiratory Rate 16 02/27/22 02:30 Blood Pressure 107/73 02/27/22 02:30 Pulse Oximetry 99 02/27/22 02:30 Oxygen Delivery Method 02/27/22 02:30 Medical Decision Making MDM Narrative Medical decision making narrative: 1. Pancytopenia-patient with a history of mantle cell lymphoma currently on oral chemotherapy. 2. Anemia-patient has had drop of his hemoglobin to 5.8. He describes clots being removed from his nose but I am not able to note any abnormalities on exam today. Oncology thinks this is likely a production issue rather than a loss i ssue. 2 units packed red blood cells irradiated given today. Lasix 20 mg between units. Hemoglobin will be checked after 2nd unit. 3. Thrombocytopenia-this is actually improved per Oncology. 4. Disposition-patient will be discharged home. He is to follow up with his oncologist on Saturday02/28/2022 as previously scheduled. Return to the emergency room for worsening symptoms. Recheck hemoglobin 9.0 Medical Records Medical records reviewed: Yes I reviewed the patient's medical records Lab Data Lab results reviewed: Yes I reviewed the patient's lab results Labs: Lab Results 02/27/22 02/27/22 02/27/22 Range/Units 01:30 01:30 01:30 WBC 4.28 L (4.50-11.00) K/uL RBC 1.80 L (4.30-5.90) m/uL Hgb 5.8 L* (13.5-17.5) gm/dL Hct 16.9 L (37.0-53.0) % MCV 94 (80-100) fL MCH 32 (26-34) pg MCHC 34 (32-36) gm/dL RDW Coeff of Rebeca 13.2 (11.5-15.5) % Plt Count 15 L* (140-440) K/uL Neut % (Auto) 49.1 (42.0-72.0) % Lymph % (Auto) 41.8 (20-44) % [place] % (Auto) 6.8 (0.0-11.0) % Eos % (Auto) 0.0 (0.0-7.0) % Baso % (Auto) 0.0 (0.0-3.0) % Neut # (Auto) 2.10 (1.7-7.0) K/uL Lymph # (Auto) 1.80 (0.90-2.90) K/uL [place] # (Auto) 0.30 (0.00-0.90) K/UL Eos # (Auto) 0.00 (0.00-0.50) K/uL Baso # (Auto) 0.00 (0.00-0.30) K/uL Abs Immat Gran (auto) 0.10 (0.00-0.30) K/uL INR 0.98 (0.91-1.10) Sodium 138 (135-149) mmol/L Potassium 4.0 (3.6-5.1) mmol/L Chloride 104 (96-114) mmol/L Carbon Dioxide 25 (20-32) mmol/L BUN 25 (7-30) mg/dL Creatinine 0.7 (0.5-1.5) mg/dL Estimated Creat Clear 117.32 Estimated GFR 106 ml/min Glucose 122 H (60-115) mg/dL Calcium 9.2 (8.4-10.6) mg/dL SARS-CoV-2 (PCR) (Negative) 02/27/22 Range/Units 02:12 WBC (4.50-11.00) K/uL RBC (4.30-5.90) m/uL Hgb (13.5-17.5) gm/dL Hct (37.0-53.0) % MCV (80-100) fL MCH (26-34) pg MCHC (32-36) gm/dL RDW Coeff of Rebeca (11.5-15.5) % Plt Count (140-440) K/uL Neut % (Auto) (42.0-72.0) % Lymph % (Auto) (20-44) % [place] % (Auto) (0.0-11.0) % Eos % (Auto) (0.0-7.0) % Baso % (Auto) (0.0-3.0) % Neut # (Auto) (1.7-7.0) K/uL Lymph # (Auto) (0.90-2.90) K/uL [place] # (Auto) (0.00-0.90) K/UL Eos # (Auto) (0.00-0.50) K/uL Baso # (Auto) (0.00-0.30) K/uL Abs Immat Gran (auto) (0.00-0.30) K/uL INR (0.91-1.10) Sodium (135-149) mmol/L Potassium (3.6-5.1) mmol/L Chloride (96-114) mmol/L Carbon Dioxide (20-32) mmol/L BUN (7-30) mg/dL Creatinine (0.5-1.5) mg/dL Estimated Creat Clear Estimated GFR ml/min Glucose (60-115) mg/dL Calcium (8.4-10.6) mg/dL SARS-CoV-2 (PCR) Negative SARS-CoV-2 (Negative) Discharge Plan Discharge Clinical Impression: Anemia, Mantle cell lymphoma, Thrombocytopenia Patient Disposition: Home, Self-Care Condition: Improved Additional Instructions: Seek medical attention for worsening or onset of new symptoms. Follow up as planned on Saturday with your oncologist. Prescriptions: No Action Calquence 100 mg capsule 100 mg PO DAILY dexamethasone 4 mg tablet Label Comments: TAKE 1 TABLET BY MOUTH DAILY allopurinol 300 mg tablet Label Comments: TAKE 1 TABLET BY MOUTH DAILY Follow Up/Referrals: Hari An MD [Primary Care Provider] - Stand Alone Forms: [employer] Info Instructions
[2022-02-27 01:38] LABS: Hematocrit 16.9 % (37.0-53.0); Lymphocytes Percent Auto 41.8 % (20-44); Mean Corpuscular HGB Conc 34 gm/dL (32-36); Mean Corpuscular Hemoglobin 32 pg (26-34); Mean Corpuscular Volume 94 fL (80-100); Monocytes Percent Auto 6.8 % (0.0-11.0); Neutrophils Percent Auto 49.1 % (42.0-72.0); RDW Coefficient of Variation % 13.2 % (11.5-15.5); White Blood Count* 4.28 K/uL (4.50-11.00)
[2022-02-27 01:40] LABS: Hemoglobin* 5.8 gm/dL (13.5-17.5); Platelet Count* 15 K/uL (140-440)
[2022-02-27 01:41] LABS: Slide Review Reflex No
[2022-02-27 01:51] LABS: Chloride* 104 mmol/L (96-114); Sodium* 138 mmol/L (135-149)
[2022-02-27 01:54] LABS: Creatinine* 0.7 mg/dL (0.5-1.5); Est. Creatinine Clearance* 117.32; Estimated Glomerular Filt Rate 106 ml/min
[2022-02-27 01:55] LABS: Blood Urea Nitrogen* 25 mg/dL (7-30); Calcium* 9.2 mg/dL (8.4-10.6); Carbon Dioxide* 25 mmol/L (20-32); Glucose* 122 mg/dL (60-115); INR 0.98 (0.91-1.10); Prothrombin Time 13.3 Seconds
[2022-02-27 02:00] VITALS: BP 111/81; PULSE 93; RESP 16; O2SAT 99
[2022-02-27 02:30] VITALS: BP 107/73; PULSE 96; RESP 16; O2SAT 99
[2022-02-27 03:15] LABS: SARS PCR* Negative SARS-CoV-2 (Negative)
--- NOTE | 2022-02-27 06:47 | PC.NURSE ---
END OF SHIFT NOTE: PT PLEASANT AND COOPERATIVE. PT ARRIVED TO FLOOR VIA W/C FROM ED @0328 FOR OUTPATIENT BLOOD TRANSFUSION. PT SETTLED INTO ROOM. CONSENT FOR BLOOD TRANSFUSION SIGNED. PT AWAITING RADIATED BLOOD.
[2022-02-27 14:47] LABS: Hemoglobin* 9.4 gm/dL (13.5-17.5)
--- NOTE | 2022-02-27 15:00 | PC.NURSE ---
DR. PUGA IN THE EMERGENCY DEPARTMENT UPDATED ON POST-TRANSFUSION HGB OF 9.4 AND STATED PATIENT OKAY TO DISCHARGE HOME AND FOLLOW UP WITH PCP TOMORROW.
--- NOTE | 2022-02-27 15:25 | PC.NURSE ---
Patient recieved 2 units of Irr. PRBC and tolerated well. Technical difficulties with Expanse - see paper charting. HGB up to 9.4 post 2nd transfusion. 20mg Lasix given in between units at 1210.
== END 2022-02-27 16:29 | disposition home or self-care (01) ==
LOC: ED 02-27 02:08 → MEDSURG 02-27 03:32
PROVIDERS: Family Medicine; Emergency Provider Family Medicine; PCP Surgery
DX: D61.818 Other pancytopenia (principal); D64.9 Anemia, unspecified; D69.6 Thrombocytopenia, unspecified
CPT/HCPCS: 36415; 36430; 80048; 85018; 85025; 85610; 86850; 86880; 86900; 86901; 86922; 87635; 99284; P9016